=== PATIENT | female | born 1995 | race Caucasian/White ===

== ENCOUNTER 2017-01-27 22:29 | Inpatient (IN) ==
[2017-01-27] MEDS ORDERED: DEMEROL INJ PRN (22:46)
[2017-01-27] MEDS ORDERED: BRETHINE SUBQ PRN (22:46)
[2017-01-27] MEDS ORDERED: REGLAN PO ONE (22:46)
[2017-01-27] MEDS ORDERED: PEPCID PO PRN (22:46)
[2017-01-27] MEDS ORDERED: PHENERGAN INJ PRN (22:46)
[2017-01-27] MEDS ORDERED: LR 500 ML IV ONE (22:46)
[2017-01-27] MEDS ORDERED: ZOFRAN IV PRN ×2 (22:46)
[2017-01-27] MEDS ORDERED: PEPCID IV PRN (22:46)
[2017-01-27] MEDS ORDERED: TYLENOL PO PRN (22:46)
[2017-01-27] MEDS ORDERED: PEPCID PO ONE (22:46)
[2017-01-27] MEDS ORDERED: STADOL IV PRN ×3 (22:46)
[2017-01-27] MEDS ORDERED: KEFZOL 1 GM/D5W 1 GM/50 ML IVPB IV PRN (22:46)
[2017-01-27] MEDS ORDERED: AMBIEN PO PRN (22:46)
[2017-01-27] MEDS ORDERED: SODIUM CHLORIDE 0.9% INJ PRN (22:46)
[2017-01-28] MEDS ORDERED: CERVIDIL VAGINAL VAG ONE
[2017-01-28] MEDS: LR 1,000 ML IV SCH ×2 (00:15→07:37)
[2017-01-28 01:08] LABS: MANUAL DIFF NEEDED? NO
[2017-01-28 01:11] LABS: BASO% 0.5 % (0.0-0.8); EOS# 0.09 X1000 (0.0-0.7); EOS% 0.7 % (0.0-10.0); HEMATOCRIT 32.3 % (37.0-47.0); HEMOGLOBIN 10.9 g/dL (12.0-16.0); IMM GRAN# 0.03 X1000 (0.0-0.04); IMM GRAN% 0.2 % (0.0-0.5); LYMPH# 3.41 X1000 (1.2-3.4); LYMPH% 27.9 % (20.5-51.1); MCH 28.6 PG (27-31); MCHC 33.7 g/dL (33-37); MCV 84.8 FL (81-99); MONO% 6.5 % (1.7-9.3); MPV 12.1 FL (7.4-10.4); NEUT% 64.2 % (42.2-75.2); PLT 213 X1000 (130-400); RBC 3.81 XMIL (4.2-5.4)
[2017-01-28 04:30] LABS: URINE SOURCE VOIDED
[2017-01-28 04:31] LABS: BILIRUBIN URINE NEGATIVE (NEGATIVE); BLOOD URINE NEGATIVE (NEGATIVE); CLARITY CLEAR (CLEAR); COLOR YELLOW; GLUCOSE URINE NEGATIVE (NEGATIVE); LEUKOCYTES URINE 1+ (NEGATIVE); NITRITE URINE NEGATIVE (NEGATIVE); PROTEIN URINE NEGATIVE (NEGATIVE); UROBILINOGEN URINE NORMAL
[2017-01-28] MEDS ORDERED: PITOCIN 30 UNITS/LR 30 UNITS/500 ML IV.SOLN IV SCH (07:00)
[2017-01-28] MEDS ORDERED: FENTANYL-BUPIV-NS 2 MCG-0.1% 200 ML EPIDURAL PRN (07:24)
[2017-01-28] MEDS ORDERED: MINERAL OIL PO ONE (09:48)
[2017-01-28] MEDS ORDERED: XYLOCAINE-MPF 1% INJ ONE (09:48)
[2017-01-28] MEDS ORDERED: M-M-R II VACCINE SUBQ ONE (10:54)
[2017-01-28] MEDS ORDERED: AMBIEN PO PRN (10:54)
[2017-01-28] MEDS ORDERED: HYDROXYZINE PO PRN (10:54)
[2017-01-28] MEDS ORDERED: XYLOCAINE-MPF 1% INJ PRN (10:54)
[2017-01-28] MEDS ORDERED: BENADRYL PO PRN (10:54)
[2017-01-28] MEDS ORDERED: PITOCIN 30 UNITS/LR 30 UNITS/500 ML IV.SOLN IV ONE (10:54)
[2017-01-28] MEDS ORDERED: BENADRYL IV PRN (10:54)
[2017-01-28] MEDS ORDERED: BOOSTRIX VACCINE IM ONE (10:54)
[2017-01-28] MEDS ORDERED: PITOCIN IM PRN (10:54)
[2017-01-28] MEDS ORDERED: PERI MEDS (DERMOPLAST/NUPERCAINAL/TUCKS) MISC PRN (10:54)
[2017-01-28] MEDS ORDERED: MINERAL OIL PO PRN (10:54)
[2017-01-28] MEDS ORDERED: CYTOTEC PO PRN (10:54)
[2017-01-28] MEDS ORDERED: HYDROXYZINE IM PRN (10:54)
[2017-01-28] MEDS: PITOCIN 20 UNITS/LR 20 UNITS/1,000 ML IV.SOLN IV SCH ×3 (11:12→16:17)
[2017-01-28] MEDS: NORCO-10 PO PRN (15:27)
[2017-01-28] MEDS ORDERED: METHERGINE IV ONE (15:57)
[2017-01-28] MEDS: METHERGINE PO SCH (21:17)
[2017-01-28] MEDS: NORCO-5 PO PRN (21:17)
[2017-01-28] MEDS: PERICOLACE PO SCH (21:17)
[2017-01-28] MEDS: MOTRIN PO PRN (23:44)
[2017-01-29] MEDS: METHERGINE PO SCH ×2 (02:06→08:24)
[2017-01-29 06:13] LABS: HEMATOCRIT 34.4 % (37.0-47.0); HEMOGLOBIN 11.3 g/dL (12.0-16.0); MCHC 32.8 g/dL (33-37); MCV 85.4 FL (81-99); MPV 12.3 FL (7.4-10.4); RBC 4.03 XMIL (4.2-5.4)
[2017-01-29] MEDS: NORCO-10 PO PRN (12:50)
[2017-01-29] MEDS: PERICOLACE PO SCH (21:06)
[2017-01-29] MEDS: NORCO-5 PO PRN (21:12)
[2017-01-29] MEDS: MOTRIN PO PRN (21:12)
[2017-01-30 08:11] VITALS: BP 115/77
[2017-01-30] MEDS: MOTRIN PO PRN (10:26)
[2017-01-30] MEDS: NORCO-5 PO PRN (11:18)
--- NOTE | 2017-01-30 15:58 | DISCHARGE SUMMARY ---
ADMISSION DATE: 01/27/2017 DISCHARGE DATE: 01/30/2017 ADMITTING DIAGNOSIS: Term , for delivery. CONDITION: Stable. DIET: As tolerated. ACTIVITY: Routine . MEDICATIONS: Continue vitamins with iron and [place] 5. [id number] nonsteroidals. DISCHARGE INSTRUCTIONS: She is to follow up in 6 weeks. HOSPITAL COURSE: Please refer to Ms. Bedolla's H P and delivery note. She was admitted for vaginal delivery. No issues. Currently day 2 without complaints desiring discharge. PHYSICAL EXAMINATION: Vital Signs: Stable. She is afebrile. She is alert and cooperative, no distress. Neck: Supple. Lungs: Clear. Heart: Regular sinus rhythm. Abdomen: Slightly distended. Uterus is firm. Extremities: No cyanosis, clubbing, edema in her extremities. ASSESSMENT: As above. PLAN: Discharged to home. cc: MD Aashish Cabrera MD
== END 2017-01-30 15:30 | disposition home or self-care (01) ==
LOC: P.LD 22:29 → P.WC 01-28 14:01
PROVIDERS: ADMIT Obstetrics & Gynecology; ATTEND Obstetrics & Gynecology